=== PATIENT | male | born 1950 | race African-American/Black ===

== ENCOUNTER 2018-03-08 09:15 | Emergency (ER) | payer MEDICARE, OTHER ==
[~2018-03-08] VITALS: Ht 172.7 cm; Wt 100.0 kg
[~2018-03-08 09:15] MED LIST: ANDROGEL1.62 % TOP; DIOVAN HCT PO; DIOVAN160 MG PO; VALSARTAN40 MG PO; [UNRECOGNIZED DRUG - OTHER]
[2018-03-08] MEDS ORDERED: COLCHICINE0.6 M2 PO (10:21)
[2018-03-08 10:30] VITALS: BP 178/89
== END 2018-03-08 10:30 | disposition home or self-care (01) ==
LOC: ED 09:15
DX: M10.9 Gout, unspecified (principal); M79.674 Pain in right toe(s); M25.474 Effusion, right foot

== ENCOUNTER 2018-03-16 10:03 | Emergency (ER) | payer MEDICARE, OTHER ==
[~2018-03-16] VITALS: Ht 172.7 cm; Wt 95.0 kg
[~2018-03-16 10:03] MED LIST changes: +COLCHICINE0.6 M2 PO
[2018-03-16] MEDS ORDERED: AUGMENTIN875TAB PO (10:42)
[2018-03-16] MEDS ORDERED: PREDNISONE50 MG PO (10:42)
[2018-03-16] MEDS ORDERED: PROAIR HFA108 MCG/AC PO (10:42)
[2018-03-16] MEDS ORDERED: ZPAK PO (10:42)
[2018-03-16 11:00] VITALS: BP 130/70
== END 2018-03-16 11:00 | disposition home or self-care (01) ==
LOC: ED 10:03
DX: J18.9 Pneumonia, unspecified organism (principal); R05 Cough

== ENCOUNTER 2018-04-19 09:47 | Emergency (ER) | payer MEDICARE, OTHER ==
[~2018-04-19] VITALS: Ht 172.7 cm; Wt 100.0 kg
[~2018-04-19 09:47] MED LIST changes: +AUGMENTIN875TAB PO; +PREDNISONE50 MG PO; +PROAIR HFA108 MCG/AC PO; +ZPAK PO
[2018-04-19] MEDS ORDERED: TORADOL PO (10:27)
[2018-04-19] MEDS ORDERED: MEDDOSEPAK PO (10:27)
[2018-04-19 10:36] VITALS: BP 180/98
== END 2018-04-19 10:41 | disposition home or self-care (01) ==
LOC: ED 09:47
DX: M10.9 Gout, unspecified (principal); M79.671 Pain in right foot

== ENCOUNTER 2018-08-18 09:47 | Emergency (ER) | payer MEDICARE, OTHER ==
[~2018-08-18] VITALS: Ht 172.7 cm; Wt 100.0 kg
[~2018-08-18 09:47] MED LIST changes: +MEDDOSEPAK PO; +TORADOL PO
[2018-08-18] MEDS ORDERED: DIOVAN320 MG PO (10:48)
[2018-08-18 10:58] LABS: HEMATOCRIT 44.2 % (39.0-50.0); HEMOGLOBIN 14.2 g/dl (14.0-18.0); IMMATURE GRANULOCYTES 0.3 % (0.0-5.0); MEAN CORPUSCULAR HGB 28.3 pG CALC (26.0-32.0); MEAN CORPUSCULAR HGB CONC 32.1 g/L CALC (32.0-36.0); NEUT# 1.23 thou/uL (1.82-7.42); RED BLOOD COUNT 5.02 mill/uL (4.70-6.10); RED CELL DISTRI WIDTH 12.9 % (11.5-15.5)
[2018-08-18 11:19] LABS: ALBUMIN 4.3 g/dL (3.2-5.0); ALKALINE PHOSPHATASE 68 u/l (38-126); ANION GAP 11 (6-22 (CALC)); BILIRUBIN, TOTAL 1.1 mg/dL (0.0-1.4); BUN 18 mg/dL (8-23); BUN/CREATININE RATIO 13 (12-20 (CALC)); CARBON DIOXIDE 27 mmol/l (22-30); CHLORIDE 105 mmol/l (95-108); CREATININE 1.4 mg/dL (0.7-1.3); GFR 51 ML/MIN (>=60 (CALC)); GFR FOR AFR.AMER. > 60 ML/MIN (>=60 (CALC)); POTASSIUM 3.9 mmol/l (3.5-5.1); SGOT/AST 26 u/l (19-48); SODIUM 140 mmol/l (137-146); TOTAL PROTEIN 7.3 g/dL (6.3-8.2)
[2018-08-18] MEDS ORDERED: FLEXERIL PO (11:42)
[2018-08-18] MEDS ORDERED: DICLOFENAC50 MG PO (11:42)
[2018-08-18 11:55] VITALS: BP 186/113
== END 2018-08-18 12:00 | disposition home or self-care (01) ==
LOC: ED 09:47
PROVIDERS: Emergency Medicine
DX: M79.18 Myalgia, other site (principal); M79.662 Pain in left lower leg; M17.11 Unilateral primary osteoarthritis, right knee

== ENCOUNTER 2019-11-24 15:31 | Observation (INO) | payer MEDICARE, OTHER ==
[~2019-11-24] VITALS: Ht 172.7 cm; Wt 101.2 kg
[~2019-11-24 15:31] MED LIST changes: +DICLOFENAC50 MG PO; +DIOVAN320 MG PO; +FLEXERIL PO
[2019-11-24 16:05] LABS: HEMATOCRIT 42.7 % (39.0-50.0); HEMOGLOBIN 13.4 g/dl (14.0-18.0); IMMATURE GRANULOCYTES 0.2 % (0.0-5.0); MEAN CELL VOLUME 86.8 fL CALC (80.0-100.0); MEAN CORPUSCULAR HGB 27.2 pG CALC (26.0-32.0); MEAN CORPUSCULAR HGB CONC 31.4 g/dL CAL (32.0-36.0); NEUT# 3.48 thou/uL (1.82-7.42); RED BLOOD COUNT 4.92 mill/uL (4.70-6.10); RED CELL DISTRI WIDTH 13.3 % (11.5-15.5)
[2019-11-24 16:26] LABS: ALBUMIN 4.4 g/dL (3.2-5.0); ALKALINE PHOSPHATASE 73 u/l (38-126); ANION GAP 10 (6-22 (CALC)); BILIRUBIN, TOTAL 0.8 mg/dL (0.0-1.4); BUN 24 mg/dL (8-23); BUN/CREATININE RATIO 18 (12-20 (CALC)); CARBON DIOXIDE 25 mmol/l (22-30); CHLORIDE 107 mmol/l (95-108); CREATININE 1.3 mg/dL (0.7-1.3); GFR 55 ML/MIN (>=60 (CALC)); GFR FOR AFR.AMER. > 60 ML/MIN (>=60 (CALC)); POTASSIUM 3.9 mmol/l (3.5-5.1); SGOT/AST 36 u/l (19-48); SODIUM 137 mmol/l (137-146)
[2019-11-24] MEDS ORDERED: VALSARTAN320 MG PO (17:08)
[2019-11-24] MEDS ORDERED: COLCHICINE0.6 M2 PO (17:09)
[2019-11-24 19:15] VITALS: BP 160/93
[2019-11-24 23:55] VITALS: BP 148/89
[2019-11-25 04:30] VITALS: BP 152/96
[2019-11-25 05:34] VITALS: BP 142/92
[2019-11-25 05:35] VITALS: BP 146/92; BP 157/93
[2019-11-25 09:06] VITALS: BP 144/101
[2019-11-25 10:30] VITALS: BP 142/103
[2019-11-25 12:34] VITALS: BP 142/103
== END 2019-11-25 12:40 | disposition home or self-care (01) ==
LOC: ED 15:31 → ED-I 16:53 → ED 17:24 → ED-I 17:25 → MS2 18:07
PROVIDERS: Family Medicine; ADMIT Internal Medicine; ATTEND Internal Medicine
DX: R55 Syncope and collapse (principal); R42 Dizziness and giddiness; U07.1 COVID-19; I10 Essential (primary) hypertension
CPT/HCPCS: G0378

== ENCOUNTER 2024-06-23 10:41 | Emergency (ER) | payer MEDICARE ==
[2024-06-23] VITALS (8 sets, daily range): BP systolic 134–156; BP diastolic 87–102
[~2024-06-23] VITALS: Ht 172.7 cm; Wt 105.2 kg
[~2024-06-23 10:41] MED LIST changes: +ASPIRIN81 MG PO; +ATORVASTATIN CA20 MG PO; +CLONIDINE HCL0.1 MG PO; +FUROSEMIDE20 MG PO; +NORMODYNE/TRAN100 MG PO; +NORVASC5 M1 PO; +VALSARTAN320 MG PO
[2024-06-23 11:59] LABS: BASO% 0.8 % (0-3); HEMATOCRIT 42.4 % (39.0-50.0); HEMOGLOBIN 13.4 g/dl (14.0-18.0); IMMATURE GRANULOCYTES 0.2 % (0.0-5.0); MEAN CELL VOLUME 88.7 fL CALC (80.0-100.0); MEAN CORPUSCULAR HGB CONC 31.6 g/dL CAL (32.0-36.0); MONO% 19.2 % (2-13); NEUT# 2.96 thou/uL (1.82-7.42); NEUT% 59.8 % (42-76); RED BLOOD COUNT 4.78 mill/uL (4.70-6.10); RED CELL DISTRI WIDTH 13.2 % (11.5-15.5)
[2024-06-23 13:44] LABS: ALBUMIN 4.1 g/dL (3.2-5.0); BILIRUBIN, TOTAL 1.1 mg/dL (0.2-1.3); CREATININE 1.5 mg/dL (0.7-1.3); POTASSIUM 4.3 mmol/l (3.5-5.1); TOTAL PROTEIN 7.4 g/dL (6.3-8.2)
[2024-06-26] MEDS ORDERED: ALLOPURINOL100 MG PO (11:07)
[2024-06-26] MEDS ORDERED: ASPIRINCHW 81MG PO (11:07)
[2024-06-26] MEDS ORDERED: AMLODIPINE BESYL5 MG PO (11:08)
[2024-06-26] MEDS ORDERED: TAMSULOSIN0.4 MG PO (11:09)
[2024-06-26] MEDS ORDERED: CLONIDINE0.2 MG PO (11:09)
[2024-06-26] MEDS ORDERED: TESTOST CYP200 MG/ML IM (11:10)
[2024-06-26] MEDS ORDERED: COLCHICINE0.6 M2 PO (11:11)
[2024-06-26] MEDS ORDERED: BREYNA IN (11:12)
== END 2024-06-23 13:35 | disposition home or self-care (01) ==
LOC: ED 10:41
PROVIDERS: Family Medicine
DX: T79.A0XA Compartment syndrome, unspecified, initial encounter (principal); I10 Essential (primary) hypertension; M10.9 Gout, unspecified; X58.XXXA Exposure to other specified factors, initial encounter